=== PATIENT | female | born 1970 | race Two or more races ===

== ENCOUNTER 2016-03-22 23:24 | Inpatient (IN) | payer BC ==
[2016-03-22] MEDS ORDERED: NS 1,000 ML IV ONE (23:42)
[2016-03-22] MEDS ORDERED: PROMETHAZINE 25 MG/ML VIAL IV ONE (23:42)
--- NOTE | 2016-03-22 23:44 | EDPRACDOC ---
- General Information Chief Complaint: Abdominal Pain Stated Complaint: TROUBLE URINATING / POST SURGERY Time Seen by Provider: 03/22/16 23:37 Mode Of Arrival: Car Home Medications: Home Medications Lisinopril 10 mg PO DAILY 12/15/12 Ibuprofen Tablet [Motrin] 800 mg PO Q6-8H PRN #30 tab 12/17/12 Oxycodone Immediate Release [Oxycodone Immediate Release (OxyIR)] 5 mg PO Q6H PRN 03/22/16 Pravastatin [Pravachol] 1 tab PO HS 03/22/16 Promethazine [Phenergan] 25 mg PO Q4H PRN 03/22/16 Allergies/Adverse Reactions: Allergies Allergy/AdvReac Type Severity Reaction Status Date / Time No Known Allergies Allergy Verified 03/22/16 23:36 - History of Present Illness Onset: 1 day HPI: PATIENT HAD CHOLECYSTECTOMY TODAY. SINCE SURGERY SHE STATES SHE HAS BEEN UNABLE TO URINATE. PAIN IN SUPRAPUBIC REGION. EPISODES OF NAUSEA AND VOMITING 7 X. 2 EPISODES OF SYNCOPE SINCE SURGERY. Pain Location: Reports: Suprapubic Pain Context: Reports: Spontaneous Pain Severity: Moderate Pain Quality: Reports: Aching Pain Radiation: Reports: No Radiation Last Menstrual Period: YEARS : No Adult Abdominal History: Reports: Abdominal Surgery Female Associated Signs & Symptoms: Reports: Nausea, Vomiting, Dysuria Oral Intake: Normal Urinary Output: Normal ED Past Medical History - History Reviewed Yes Nurses notes reviewed and agree except as marked Travel Outside of [place] in the Last 3 Months?: No - Patient Medical History Cardiac History: Reports: Hypertension Systemic History: Reports: Anemia (HISTORY). Denies: Cancer Surgical History: Reports: Hysterectomy - Family Medical History Reports: Hypertension (MOM), Diabetes (MOM). Denies: Cancer, Stroke, Cardiac Disorders - Social Medical History Smoking Status: Never smoker ETOH: None Substance Abuse: None Lives With: Family Lives In: Home EDM Review of Systems - Review of Systems ROS Negative Except as Marked: Yes All systems reviewed and were negative except as marked Constitutional: No Symptoms Reported. negative: Fever, Chills, Weakness, Fatigue, Loss of Appetite Eyes: No Symptoms Reported. negative: Redness, Blurred Vision, Double Vision, Discharge, Pain, Light Sensitive, Photophobia Ears: No Symptoms Reported. negative: Pain, Hearing Loss, Drainage, Ear Pulling Throat: No Symptoms Reported. negative: Pain, Swelling Nose: No Symptoms Reported. negative: Congestion, Bleeding, Discharge, Injection, Swelling, Deformity, Ecchymosis, Tender, Abrasion, Laceration Mouth: No Symptoms Reported. negative: Pain, Drooling Respiratory: No Symptoms Reported. negative: Cough, Brassy Cough, Barky Cough, Shortness of Breath, Wheezing, Hemoptysis Cardiovascular: Syncope. negative: Chest Pain, Cyanosis, Edema, Orthopnea, Palpitations, PND, Skin Mottling Gastrointestinal: Nausea, Pain, Vomiting. negative: Constipation, Diarrhea, Formula Intolerance, Melena Genitourinary: No Symptoms Reported. negative: Dysuria, Hematuria, Frequency, Discharge, Bleeding, Testicular Pain, Neurological: No Symptoms Reported. negative: Headache, Dizziness, Seizure, Numbness, Weakness, Speech Difficulty, Gait Difficulty Musculoskeletal: No Symptoms Reported. negative: Neck, Chestwall, Ribs, Back, Shoulder, Arm, Elbow, Forearm, Wrist, Hand, Pelvis, Hip, Femur, Knee, Leg, Ankle , Foot Integumentary: No Symptoms Reported. negative: Itching, Rash, Bruising, Wound Allergic/Immunologic: No Symptoms Reported. negative: Hives, Itching Hematologic: No Symptoms Reported. negative: Lymphadenopathy, Easy Bruising, Easy Bleeding Endocrine: No Symptoms Reported. negative: Weight Gain, Weight Loss Psychiatric: No Symptoms Reported. negative: Anxiety, Depression, Hallucinations, Insomnia, Suicidal - Physical Exam Constitutional: Alert (Awake), Distress (MODERATE) Oriented to: Time, Person, Place Last recorded Vital Signs: Last Vital Signs Temp 98 F 03/22/16 23:29 Pulse 87 03/22/16 23:29 Resp 20 03/22/16 23:29 BP 97/55 L 03/22/16 23:29 Pulse Ox 100 03/22/16 23:29 Oxygen Pulse Oxygen Saturation 100 O2 Device Room Air Oxygen Flow Rate Fraction of Inspired Oxygen ( FIO2) - HEENT Head: Normal ( normocephalic) Eye Exam: Normal (PERRL, EOMI, Sclera white) Oropharynx: Normal (Pharynx:Moist without exudate,Gums-no swelling) Tympanic Membrane: Normal ENT EAC: Normal TMJ: Normal Nose: No Symptoms Reported (septum midline) Neck: Normal (FROM, trachea at midline) - Respiratory/Cardiovascular Respiratory: Normal - CTA (BBS clear to auscultation without adventitious sounds ) Cardiovascular: Normal (RRR without murmur, gallop or rub) - GI Auscultation: Normal (NABS) Palpation: Normal (Soft,No rebound or guarding, non distended) Tenderness: Mild, Suprapubic Chandler's Sign: Negative GI Comment: WOUNDS APPEAR TO BE IN EARLY HEALING. NO ERYTHEMA. NO DISCHARGE - Bladder: Tender - Musculoskeletal Back: Normal (Non-Tender) Extremities: Normal (Normal tone, Pulses 2+ No cyanosis or edema, FROM) - Integumentary Skin: Cool, Dry, Pale Lymphatics: Normal (no adenopathy) - Neurologic Memory Impaired: Normal Motor Function: Normal (Normal tone, Pulses 2+ No cyanosis or edema, FROM) Cranial Nerve: Normal (CN II-X11 intact sensation, strength 5/5) Cerebellar: Normal Mood Description: Normal Perception: Normal - Results 03/23/16 00:10 03/23/16 00:10 WBC 14.7 xk/uL (3.8-10.8) H 03/23/16 00:10 RBC 3.62 xM/uL (4.20-5.40) L 03/23/16 00:10 Hgb 10.0 g/dL (12.0-16.0) L 03/23/16 00:10 Hct 30.3 % (36-47) L 03/23/16 00:10 MCV 84 fL (81-99) 03/23/16 00:10 MCH 27.7 pg (27-32) 03/23/16 00:10 MCHC 33.0 g/dl (33-36) 03/23/16 00:10 RDW 13.8 % (11.5-14.5) 03/23/16 00:10 Plt Count 285 xk/uL (130-400) 03/23/16 00:10 MPV 8.8 fL (7.4-10.4) 03/23/16 00:10 Neut % (Auto) 86.1 % (45-76) H 03/23/16 00:10 Lymph % (Auto) 8.5 % (17-44) L 03/23/16 00:10 Winston % (Auto) 5.2 % (3-10) 03/23/16 00:10 Eos % (Auto) 0.0 % (0-5) 03/23/16 00:10 Baso % (Auto) 0.2 % (0-2) 03/23/16 00:10 Absolute Neuts (auto) 12.64 xk/uL (1.7-8.2) H 03/23/16 00:10 Absolute Lymphs (auto) 1.18 xk/uL (0.65-4.75) 03/23/16 00:10 Sodium 134 mEq/L (137-146) L 03/23/16 00:10 Potassium 4.7 mEq/L (3.5-5.1) 03/23/16 00:10 Chloride 100 mEq/L (98-107) 03/23/16 00:10 Carbon Dioxide 23 mMOL/L (22-33) 03/23/16 00:10 Anion Gap 16 mEq/L (8-16) 03/23/16 00:10 BUN 22 MG/DL (7-17) H 03/23/16 00:10 Creatinine 0.80 MG/DL (0.52-1.04) 03/23/16 00:10 Estimated GFR (MDRD) > 60 mL/min (>=60) 03/23/16 00:10 Glucose 133 mg/dL (70-99) H 03/23/16 00:10 Calculated Osmolality 263 MOs/Kg (270-290) L 03/23/16 00:10 Calcium 8.4 MG/DL (8.4-10.2) 03/23/16 00:10 Corrected Calcium 9.1 MG/DL (8.4-10.2) 03/23/16 00:10 Total Bilirubin 0.5 MG/DL (0.2-1.3) 03/23/16 00:10 AST 29 IU/L (14-36) 03/23/16 00:10 ALT 41 IU/L (9-52) 03/23/16 00:10 Alkaline Phosphatase 46 IU/L (38-126) 03/23/16 00:10 Total Protein 5.9 G/DL (6.3-8.2) L 03/23/16 00:10 Albumin 3.3 G/DL (3.5-5.0) L 03/23/16 00:10 Urine Color Nguyen 03/23/16 00:14 Urine Clarity Sl cldy 03/23/16 00:14 Urine pH 5.0 (5.0-8.0) 03/23/16 00:14 Ur Specific [place] 1.020 (1.003-1.035) 03/23/16 00:14 Urine Protein 1+ (NEG/TRACE) H 03/23/16 00:14 Urine Glucose (UA) Neg (NEGATIVE) 03/23/16 00:14 Urine Ketones Neg (NEGATIVE) 03/23/16 00:14 Urine Occult Blood Neg (NEG/TRACE) 03/23/16 00:14 Urine Nitrite Neg (NEGATIVE) 03/23/16 00:14 Urine Bilirubin Neg (NEGATIVE) 03/23/16 00:14 Urine Urobilinogen <2.0 MG/DL (0-1) 03/23/16 00:14 Ur Leukocyte Esterase Neg (NEGATIVE) 03/23/16 00:14 Urine RBC 0-2 (0-5) 03/23/16 00:14 Urine WBC 2-5 (0-5) 03/23/16 00:14 Ur Epithelial Cells 1+ 03/23/16 00:14 Uric Acid Crystals Occ 03/23/16 00:14 Urine Bacteria Few (NEG/FEW) 03/23/16 00:14 Hyaline Casts Tntc (0-2) H 03/23/16 00:14 Urine Mucus Mod (NEG/OCC) H 03/23/16 00:14 Lab Results 03/23/16 03/23/16 03/23/16 00:14 00:10 00:10 WBC 14.7 H RBC 3.62 L Hgb 10.0 L Hct 30.3 L MCV 84 MCH 27.7 MCHC 33.0 RDW 13.8 Plt Count 285 MPV 8.8 Neut % (Auto) 86.1 H Lymph % (Auto) 8.5 L Winston % (Auto) 5.2 Eos % (Auto) 0.0 Baso % (Auto) 0.2 Absolute Neuts (auto) 12.64 H Absolute Lymphs (auto) 1.18 Sodium 134 L Potassium 4.7 Chloride 100 Carbon Dioxide 23 Anion Gap 16 BUN 22 H Creatinine 0.80 Estimated GFR (MDRD) > 60 Glucose 133 H Calculated Osmolality 263 L Calcium 8.4 Corrected Calcium 9.1 Total Bilirubin 0.5 AST 29 ALT 41 Alkaline Phosphatase 46 Total Protein 5.9 L Albumin 3.3 L Urine Color Nguyen Urine Clarity Sl cldy Urine pH 5.0 Ur Specific [place] 1.020 Urine Protein 1+ H Urine Glucose (UA) Neg Urine Ketones Neg Urine Occult Blood Neg Urine Nitrite Neg Urine Bilirubin Neg Urine Urobilinogen <2.0 Ur Leukocyte Esterase Neg Urine RBC 0-2 Urine WBC 2-5 Ur Epithelial Cells 1+ Uric Acid Crystals Occ Urine Bacteria Few Hyaline Casts Tntc H Urine Mucus Mod H - EKG EKG #1 EKG Time: 00:09 -: Yes EKG interpreted by me Rate: bpm: 85 [place]: Normal Rhythm: NSR Block: None Hypertrophy: None ST: Normal - Additional Information patient had 300cc urine output with catheter - Departure Yes I personally saw and evaluated the patient. Disposition: Admit IP To This Hospital Condition: Fair Final Diagnosis: Dehydration Hypotension Qualifiers: Hypotension type: orthostatic hypotension Qualified Code(s): I95.1 - Orthostatic hypotension Syncope Qualifiers: Syncope type: unspecified Qualified Code(s): R55 - Syncope and collapse Nausea & vomiting Qualifiers: Vomiting type: unspecified Vomiting Intractability: intractable Qualified Code( s): R11.2 - Nausea with vomiting, unspecified Instructions: Acute Abdominal Pain (ED), Acute Nausea and Vomiting (ED) Education/Counseling Given To: Patient Education/Counseling Given Regarding: Diagnosis, Treatment, Prognosis Referrals: None,No Provider [Primary Care Provider] - One Week Prescriptions: No Action Lisinopril 10 mg PO DAILY Ibuprofen Tablet [Motrin] 800 mg PO Q6-8H PRN #30 tab PRN Reason: Pain Pravastatin [Pravachol] 1 tab PO HS Oxycodone Immediate Release [Oxycodone Immediate Release (OxyIR)] 5 mg PO Q6H PRN PRN Reason: Pain Promethazine [Phenergan] 25 mg PO Q4H PRN PRN Reason: Nausea/Vomiting Decision to Admit Time: 00:50 Decision to admit date: 03/23/16 Decision to admit: from ED - Physician Consulted Surgery Time Called: 00:50 Provider Called: Sam Gastelum Time Poll Clerk Returned Call: 00:50
--- NOTE | 2016-03-23 00:07 | DIRPT ---
CLINICAL DATA: Patient with abdominal pain and vomiting. EXAM: PORTABLE CHEST 1 VIEW COMPARISON: None. FINDINGS: Normal cardiac and mediastinal contours. Elevation of the right hemidiaphragm. Minimal heterogeneous opacities right lung base. No pleural effusion or pneumothorax. IMPRESSION: Elevation right hemidiaphragm with right basilar heterogeneous opacities favored represent atelectasis. Electronically Signed By: Martin Claudio M.D. On: 03/23/2016 00:04
[2016-03-23 00:24] LABS: AUTOMATED BASOPHIL 0.2 % (0-2); AUTOMATED LYMPH 8.5 % (17-44); AUTOMATED MONOCYTE 5.2 % (3-10); AUTOMATED NEUTROPHIL 86.1 % (45-76); MPV 8.8 fL (7.4-10.4)
[2016-03-23 00:36] LABS: BLOOD UREA NITROGEN 22 MG/DL (7-17); CALC CORRECTED 9.1 MG/DL (8.4-10.2); CALCIUM 8.4 MG/DL (8.4-10.2); CALCULATED OSMOLALITY 263 MOs/Kg (270-290); CHLORIDE 100 mEq/L (98-107); GLUCOSE 133 mg/dL (70-99); SODIUM LEVEL 134 mEq/L (137-146); TOTAL PROTEIN 5.9 G/DL (6.3-8.2)
[2016-03-23 00:37] LABS: LEUKOCYTES/URINE NEG (NEGATIVE); NITRITE/URINE NEG (NEGATIVE); RBC/URINE 0-2 (0-5); URINE OCCULT BLOOD NEG (NEG/TRACE)
[2016-03-23] MEDS ORDERED: HYDROmorphone 1 MG INJECTION IV ONE (00:47)
[2016-03-23] MEDS ORDERED: Aluminum;Magnesium;Simethicone 30 ML UDC PO PRN (01:07)
[2016-03-23] MEDS ORDERED: ACETAMINOPHEN 650 MG SUPP PR PRN (01:07)
[2016-03-23] MEDS ORDERED: ONDANSETRON HCL 4 MG/2 ML VIAL IV PRN (01:07)
[2016-03-23] MEDS ORDERED: IBUPROFEN 600 MG TAB PO PRN (01:07)
[2016-03-23] MEDS ORDERED: Albuterol/Ipratropium Neb 3 ML NEB NEB PRN (01:07)
[2016-03-23] MEDS ORDERED: MAGNESIUM HYDROXIDE 30 ML BOTTLE PO PRN (01:07)
[2016-03-23] MEDS ORDERED: Docusate Sodium 100 MG CAP PO PRN (01:07)
[2016-03-23] MEDS ORDERED: PROMETHAZINE 25 MG/ML VIAL IV PRN (01:07)
[2016-03-23] MEDS: LR 1,000 ML IV SCH ×3 (02:02→17:58)
[2016-03-23] MEDS: MORPHINE 2 MG/ML INJECTION IV PRN ×4 (02:28→19:31)
[2016-03-23 04:37] VITALS: BMI 32.2
[2016-03-23] MEDS ORDERED: Vaccine Screening Complete SCH (12:00)
--- NOTE | 2016-03-23 13:21 | HISTPHYS ---
- Chief Complaint nausea and vomiting - History of Present Illness This is a 45 year old female that underwent laparoscopic cholecystectomy with intraoperative cholangiogram on 03/22/16. She developed nausea and vomiting at home. She reports emesis x 7 at home. She reports dizziness at home. She reports that she had difficulty urinating at home. She denies nausea or vomiting today. She reports minimal abdominal pain today and much better compared to prior to surgery. - Medical History Cardiac History: Reports: Hypertension Systemic History: Reports: Anemia (HISTORY) Psychological History: Denies: Depression - Surgical History Reports: Cholecystectomy, Hysterectomy - Medictions/Allergies Allergies No Known Allergies Allergy (Verified 03/22/16 23:36) Home Medications Lisinopril 10 mg PO DAILY 12/15/12 Ibuprofen Tablet [Motrin] 800 mg PO Q6-8H PRN #30 tab 12/17/12 Oxycodone Immediate Release [Oxycodone Immediate Release (OxyIR)] 5 mg PO Q6H PRN 03/22/16 Pravastatin [Pravachol] 1 tab PO HS 03/22/16 Promethazine [Phenergan] 25 mg PO Q4H PRN 03/22/16 Etodolac [Etodolac ER] 500 mg PO BID 03/23/16 - Family History Reports: Hypertension (MOM), Diabetes (MOM). Denies: Cancer, Stroke, Cardiac Disorders - Social History Travel Outside of [place] in the Last 3 Months?: No Lives: With Family Smoking Status: Never smoker Social History: Denies: Amphetamine Use, Alcohol Use, Barbiturate Use, Benzodiazipine Use, Cocaine Use, Heroin Use, Marijuana Use, Methadone Use, MDMA (Ecstasy) Use, Substance Use Disorder - Review of Systems Yes All systems reviewed and were negative except as marked (twelve systems reviewed with the patient.) - Physical Exam Vital Signs: Initial Vitals Temperature 98 F 03/22/16 23:29 Pulse Rate 87 03/22/16 23:29 Respiratory Rate 20 03/22/16 23:29 Blood Pressure 97/55 L 03/22/16 23:29 Pulse Oxygen Saturation 100 03/22/16 23:29 Constitutional: No apparent distress Oriented to: Time, Person, Place - HEENT Head: Normal (normocephalic, atraumatic.), Other (No cervical lymphadenopathy. No supraclavicular lymphadenopathy. Neck: No palpable mass, supple , trachea midline.) Eye: Normal (pupils equal, reactive to light, and round; EOMI, Sclera white). negative: Scleral Icterus Oropharynx: Normal (Pharynx: Moist without exudate,Gums-no swelling, No oropharyngeal lesions or erythema, Mucous membranes are dry.) Tympanic Membrane: Normal (no discharge) ENT EAC: Normal (No oropharyngeal lesions or erythema. Mucous membranes are dry. ) TMJ: Normal Nose: No Symptoms Reported (septum midline, Nares patent, without discharge or bleeding.) Respiratory: Normal - CTA (Clear to auscultation bilaterally. No wheezing, rales , rhonchi. Chest wall movements are symmetric. No use of accessory muscles to breathe.) Cardiovascular: Normal (RRR , Normal S1, S2. No murmurs, rubs, or gallops. PMI non-displaced. Carotids: no carotid bruits. No bradycardia or tachycardia. DP pulses 2+ bilaterally.) - GI Auscultation: Normal (normal active sounds) Palpation: Normal (Soft,non distended,nontender. No hepatosplenomegaly.) Tenderness: Non tender (No rebound or guarding) Chandler's Sign: Negative Rectal Exam: Deferred - Musculoskeletal Back: Normal (Non-Tender) Extremities: Normal (Normal tone, DP pulses 2+ bilaterally, No cyanosis or edema bilaterally, FROM bilaterally.) - Integumentary Skin: Normal (Clean, dry, and intact. No rashes. No lesions.) Lymphatics: Normal (No cervical lymphadenopathy. No supraclavicular lymphadenopathy.) - Neurologic Memory Impaired: Normal Motor Function: Normal (Motor 5/5 throughout.Normal tone, Pulses 2+ No cyanosis or edema, FROM) Cranial Nerve: Normal (CN II-XII intact sensation, strength 5/5) Cerebellar: Normal (Babinski: toes downgoing bilaterally. Intact Finger to nose. Sensory grossly intact to light touch. Intact rapid alternating movements bilaterally. No pronator drift.) Mood Description: Normal (Fully oriented. Normal and appropriate affect.) Perception: Normal (Normal and appropriate affect.) - Lab Results 03/23/16 00:10 03/23/16 00:10 - Diagnostic Findings Final Report CLINICAL DATA: Patient with abdominal pain and vomiting. EXAM: PORTABLE CHEST 1 VIEW COMPARISON: None. FINDINGS: Normal cardiac and mediastinal contours. Elevation of the right hemidiaphragm. Minimal heterogeneous opacities right lung base. No pleural effusion or pneumothorax. IMPRESSION: Elevation right hemidiaphragm with right basilar heterogeneous opacities favored represent atelectasis. Electronically Signed By: Martin Claudio M.D. On: 03/23/2016 00:04 - Assessment/Plan (1) Dehydration E86.0 - DEHYDRATION Acute Present on Admission: Yes Comment: The patient's postoperative nausea and vomiting appear to have contributed to dehydration and dizziness. According to the patient the nausea and vomiting appear to have resolved. We will plan for intravenous fluids and careful monitoring. We will encourage the patient in ambulation and plan for removal of the reyes catheter prior to discharge and ensure that the patient is able to urinate without difficulty. I discussed the treatment plan at length with the patient via translator interpreter. All questions were answered. She voiced understanding and agreement with the above plan. Case Care Discussed with: Patient (I discussed with the patient via translator interpreter. )
[2016-03-23] MEDS: SIMETHICONE 80 MG TAB PO PRN ×2 (15:38→20:36)
[2016-03-23] MEDS: PRAVASTATIN 20 MG TAB PO SCH (20:36)
[2016-03-24] MEDS: SIMETHICONE 80 MG TAB PO PRN (00:31)
[2016-03-24] MEDS: MORPHINE 2 MG/ML INJECTION IV PRN ×2 (01:20→14:12)
[2016-03-24] MEDS: LR 1,000 ML IV SCH ×3 (04:58→20:33)
[2016-03-24 07:29] LABS: BLOOD UREA NITROGEN 9 MG/DL (7-17); CALCIUM 8.1 MG/DL (8.4-10.2); CALCULATED OSMOLALITY 268 MOs/Kg (270-290); CHLORIDE 105 mEq/L (98-107); GLUCOSE 92 mg/dL (70-99); SODIUM LEVEL 140 mEq/L (137-146)
--- NOTE | 2016-03-24 14:53 | PCM.SURGRO ---
- Subjective Chief Complaint: left ankle swelling Post Op Day: 2 (laparoscopic cholecystectomy) Patient: Reports: Feels better (The patient denies abdominal pain currently.), Tolerating Regular Diet, Voiding without difficulty (The patient reports that she was able to urinate multiple times today. I discussed with the patient's nurse, Rimma, who confirmed this.), Flatus, Bowel Movement, Afebrile, Ambulating in [place] (Multiple times.), Other (The patient states that she fell on her left ankle at home and now has mild swelling of the left ankle. She denies pain with ambulation.). Denies: Nausea, Vomiting, Shortness of breath - Objective / Physical Exam Vital Signs: Temperature: 98.5 F (03/24/16 13:37) HR: 90 (03/24/16 13:37)RR: 18 (03/24/16 13: 37) BP: 121/58 (03/24/16 13:37)Pulse Ox: 99 (03/24/16 13:37) General: Alert, Oriented x3, Cooperative, No acute distress HEENT: Normal, Anicteric Sclera, Mucous membr. moist/pink Respiratory: Normal - CTA Cardiovascular: Regular rate and rhythm Gastrointestinal: Soft, Bowel Sounds, Other (dressings intact.). negative: Distended, Tender, Guarding, Firm, Rigid, Hernia Extremities: Swelling (mild swelling of the left ankle but not tender. Full range of motion of the left ankle.). negative: Tenderness, Edema Psych/Mental Status: Appropriate, Normal Affect, Cooperative. negative: Agitated, Anxious Neurological: Normal speech Skin: No rashes Surgical wound: Other (dressings intact) - Assessment and Plan (1) Dehydration Acute E86.0 - DEHYDRATION Present on Admission: Yes Comment/Plan: The patient appears to be improving. She had an episode of urinary retention earlier today but this is slowly improving. We will obtain an x ray of the left foot to ensure that there is no evidence of fracture. We will continue intravenous hydration and ambulation and monitor closely for any evidence of dizziness or ambulatory dysfunction. It is unsafe to discharge the patient at this time secondary to concern regarding the patient's stability while ambulating. I encouraged the patient in the use of the incentive spirometer. I discussed the treatment plan and tentative home discharge plans with the patient and the patient's , via language interpreter. All questions were answered. They voiced understanding and agreement with the above plan.
--- NOTE | 2016-03-24 15:13 | DIRPT ---
CLINICAL DATA: LEFT ankle swelling EXAM: LEFT ANKLE COMPLETE - 3+ VIEW COMPARISON: None. FINDINGS: Ankle mortise intact. The talar dome is normal. No malleolar fracture. The calcaneus is normal. IMPRESSION: No fracture or dislocation. Electronically Signed By: Evert Higginbotham M.D. On: 03/24/2016 15:10
[2016-03-24] MEDS: PRAVASTATIN 20 MG TAB PO SCH (20:29)
[2016-03-24] MEDS: ACETAMINOPHEN 325 MG/TAB TABLET PO PRN (20:29)
[2016-03-25] MEDS: LR 1,000 ML IV SCH ×2 (01:39→06:07)
[2016-03-25] MEDS: ACETAMINOPHEN 325 MG/TAB TABLET PO PRN (02:52)
[2016-03-25 06:18] VITALS: TEMP 98.2
[2016-03-25] MEDS: SIMETHICONE 80 MG TAB PO PRN (07:59)
--- NOTE | 2016-03-25 09:31 | PCM.DCS92 ---
- Final/Secondary Discharge Diagnosis (1) Dehydration Acute E86.0 - DEHYDRATION Present on Admission: Yes Discharge Disposition: Home Discharge Condition: Improved Cognitive Discharge Status: Unimpaired Fuctional Discharge Status: Independent Physician Follow up/Referrals: Pablo Vasquez MD [Staff Physician] - Three Weeks Sam Gastelum DO [Staff Physician] - Two Weeks Home Medications/ New Prescriptions: New Ibuprofen 400 mg PO Q6H PRN #20 tablet PRN Reason: Abdominal Pain No Action Lisinopril 10 mg PO DAILY Ibuprofen Tablet [Motrin] 800 mg PO Q6-8H PRN #30 tab PRN Reason: Pain Pravastatin [Pravachol] 1 tab PO HS Oxycodone Immediate Release [Oxycodone Immediate Release (OxyIR)] 5 mg PO Q6H PRN PRN Reason: Pain Promethazine [Phenergan] 25 mg PO Q4H PRN PRN Reason: Nausea/Vomiting Etodolac [Etodolac ER] 500 mg PO BID Additional Instructions: Walk three times a day at least. Use incentive spirometer every hour while awake. Diet at Discharge: As Tolerated, Regular Activity: No Heavy Lifting, No Driving Call Office For: Worsening Symptoms, Wound is Draining Pus, Fever over 101 F, Wound is Painful, Wound is Red, Pain Uncontrolled By Meds, Other (See Details) ( chest pain or difficulty breathing.) Discontinue use of:: Alcohol, All Illegal Substances, All Types of Tobacco - DC Summary Notes Hospital Course Note:: Discharge summary on patient named BETO BASILIO admitted to [facility] on 03/23/16 by Sam Gastelum DO. The patient was admitted with a diagnosis of dehydration and urinary retention. She was started on intravenous fluids and closely monitored. The patient's diet and activity were advanced, which she was able to tolerate. She stated that she felt better and wanted to go home on 03/25/16. Full and careful home instructions were discussed with the patient and the patient's , via roof designer Marcy. All questions were answered. They voiced understanding. Date of discharge is . Discharge condition: Stable Final discharge diagnosis: dehydration and urinary retention. Wound Care Surgical Site: Yes May Shower Starting:: 03/26/16 Remove Clear Dressing In How Many Days?: 7 Remove Gauze Dressing in How Many Days?: 7 Ability To Perform Care (if applicable): Yes - Physical Exam Vital Signs: Initial Vitals Temperature 98 F 03/22/16 23:29 Pulse Rate 87 03/22/16 23:29 Respiratory Rate 20 03/22/16 23:29 Blood Pressure 97/55 L 03/22/16 23:29 Pulse Oxygen Saturation 100 03/22/16 23:29 Constitutional: Alert (Awake, Fully oriented. Normal and appropriate affect.Well appearing. Well nourished.), No apparent distress Oriented to: Time, Person, Place - HEENT Head: Normal (normocephalic, atraumatic.), Other (No cervical lymphadenopathy. No supraclavicular lymphadenopathy. Neck: No palpable mass, supple , trachea midline.) Eye: Normal (pupils equal, reactive to light, and round; EOMI, Sclera white) Oropharynx: Normal (Pharynx: Moist without exudate,Gums-no swelling, No oropharyngeal lesions or erythema, Mucous membranes are dry.) TMJ: Normal Nose: No Symptoms Reported (septum midline, Nares patent, without discharge or bleeding.) Respiratory: Normal - CTA (Clear to auscultation bilaterally. No wheezing, rales , rhonchi. Chest wall movements are symmetric. No use of accessory muscles to breathe.) Cardiovascular: Normal (RRR , Normal S1, S2. No murmurs, rubs, or gallops. PMI non-displaced. Carotids: no carotid bruits. No bradycardia or tachycardia. DP pulses 2+ bilaterally.) - GI Auscultation: Normal (normal active sounds) Palpation: Normal (Soft,non distended,nontender. No hepatosplenomegaly.) Tenderness: Non tender (No rebound or guarding) Chandler's Sign: Negative Rectal Exam: Deferred - Exam Deferred: Yes - Musculoskeletal Back: Normal (Non-Tender) Extremities: Normal (Normal tone, DP pulses 2+ bilaterally, No cyanosis or edema bilaterally, FROM bilaterally.) - Integumentary Skin: Normal (Clean, dry, and intact. No rashes. No lesions.) Lymphatics: Normal (No cervical lymphadenopathy. No supraclavicular lymphadenopathy.) - Neurologic Memory Impaired: Normal Motor Function: Normal (Motor 5/5 throughout.Normal tone, Pulses 2+ No cyanosis or edema, FROM) Cranial Nerve: Normal (CN II-XII intact sensation, strength 5/5) Cerebellar: Normal (Babinski: toes downgoing bilaterally. Intact Finger to nose. Sensory grossly intact to light touch. Intact rapid alternating movements bilaterally. No pronator drift.) Mood Description: Normal (Fully oriented. Normal and appropriate affect.) Perception: Normal (Normal and appropriate affect.)
[2016-03-25 11:37] VITALS: BP 121/73; PULSE 76
== END 2016-03-25 11:42 | disposition home or self-care (01) | DRG 641 ==
LOC: ED 23:24 → MPS3 03-23 01:06
PROVIDERS: ADMIT Surgery; ATTEND Surgery
DX: E86.0 Dehydration (principal); I10 Essential (primary) hypertension; R33.9 Retention of urine, unspecified; Z79.899 Other long term (current) drug therapy; R11.2 Nausea with vomiting, unspecified; Z90.49 Acquired absence of other specified parts of digestive tract
CPT/HCPCS: 36415; 51701; 71010; 80048; 80053; 81001; 85025; 93005; 96361; 96374; 96375; 99284; G0237; J1170; J2270; J2550; J3490

== ENCOUNTER → 2016-03-22 | Day surgery (SDC) | payer BC ==
[2012-12-15 08:32] VITALS: BMI 29.6
[~2016-03-22] MED LIST: BUPIVACAINE 0.5% 30 ML VIAL ONE; CEFAZOLIN 1 GM VIAL ONE; DEXAMETHASONE 4 MG/ML VIAL IV ONE; FENTANYL 100 MCG/2 ML VIAL IV ONE; FENTANYL 100 MCG/2 ML VIAL IV PRN; FENTANYL 100 MCG/2 ML VIAL ONE; GLYCOPYRROLATE 1 MG VIAL IM ONE; HYDROmorphone 1 MG INJECTION IV PRN; HYDROmorphone 1 MG INJECTION ONE; ISOVUE-300 (61%) 50 ML ONE; KETOROLAC TROMETH 30 MG/ML VIAL IM ONE; LABETALOL 20 MG/4 ML SYRINGE IV PRN; LIDOCAINE 4% 5 ML AMPULE NEB ONE; MEPERIDINE 25 MG/ML TUBEX IV PRN; METOCLOPRAMIDE 10 MG/2 ML VIAL IV ONE; NEOSTIGMINE 1 MG/1 ML (1:1000) INJ 10 ML MDV IM ONE; NIMBEX 10 MG/5 ML VIAL IV ONE; ONDANSETRON HCL 4 MG ODT TAB PO PRN; ONDANSETRON HCL 4 MG/2 ML VIAL IV ONE; ONDANSETRON HCL 4 MG/2 ML VIAL IV PRN; OXYCODONE HCL 5 MG TABLET ONE; PROMETHAZINE 25 MG/ML VIAL IV PRN; PROPOFOL 200 MG/20 ML VIAL IV ONE; hydrALAZINE 20 MG/ML VIAL IV PRN
--- NOTE | 2016-03-22 06:55 | SC.ANESPOS ---
Post-Anesthesia Note LOC: [place] [facility] Calling Post-Anesthesia Assessment: Awake, Returned to Baseline, Hemodynamically Stable , Pain Control Adequate Phase I & II Recovery Complete: Yes Apparent Anesthesia Complication: No : N - Vital Signs Blood Pressure: 135/80 Pulse: 67 Resp Rate: 18 O2 Sat: 99 Temp: 98.3 F
--- NOTE | 2016-03-22 06:58 | HIM.ANES ---
Anesthesia Evaluation & Plan Diagnoses: RIGHT UPPER QUADRANT PAIN (03/22/16) Consented Procedure: LAPAROSCOPIC CHOLECYSTECTOMY WITH INTRAOPERATIVE CHOLANGIOGRAM,POSSIBLE OPEN INCISION - Focused Review of Systems Now: No Cardiac History: Yes: Hx Hypertension, Hx Cardiac Disorders, Hx Abnormal Cholesterol/Hyperlipidemia HEENT: Yes: Hx Vision Problem (WEARS READERS) No: Other HEENT Problems Gastrointestinal: No: Hx Gastroesophageal Reflux Disease, Hx Gastrointestinal Disorders Neurological/Musculoskeletal: No: Hx Neurological Disorders Psychological: No Hx Mental/Emotional Disorders Blood/Autoimmune: Yes: Hx Anemia (HISTORY) No: Hx AIDS, Hx Hepatitis (type) Smoking Status: Never smoker Other Surgical History: BLADDER NICKED DURING [id number] -14 YEARS AGO - Focused Physical Exam NPO since: 03/21/16 Mallampati: Class III Thyromental Distance: Greater than 3 Neck: Full Range of Motion Dental: Normal - no significant findings Cardiovascular/Chest: Normal Respiratory: Lungs clear Any problems with anesthesia, including nausea and vomiting?: No Any relatives with a history of Malignant Hyperthermia?: No Beta Darvin given (if appropriate): N/A Other: Problem List Problem Status Onset Anemia Active Menorrhagia Active PT/PTT/INR/ Urine Test Neg (NEGATIVE) 03/22/16 06:10 Allergies Allergy/AdvReac Type Severity Reaction Status Date / Time No Known Allergies Allergy Verified 03/22/16 06:47 Home Medications Medication Instructions Recorded Last Taken Type Lisinopril 10 mg PO DAILY 12/15/12 03/22/16 05:30 History Ibuprofen Tablet [Motrin] 800 mg PO Q6-8H PRN #30 tab 12/17/12 03/20/16 08:00 Rx Pravastatin [Pravachol] 1 tab PO HS 03/22/16 03/20/16 22:00 History Height and Weight Patient's height 5 ft 2 in Patient's weight 168 lb BMI 29.6 Vital Signs Temperature 98.3 F 03/22/16 06:55 Pulse Rate 67 03/22/16 06:55 Respiratory Rate 18 03/22/16 06:55 Blood Pressure 135/80 03/22/16 06:55 Pulse Oxygen Saturation 99 03/22/16 06:55 - Anesthetic Plan Anesthesia Type: General ASA Class: 2 -: I have examined this patient and reviewed the medical record. The patient has been assessed prior to anesthesia. Risks and benefits of anesthesia and anesthetic technique options have been discussed and all questions answered. The patient accepts the risk and desires me to proceed with the planned anesthetic.
--- NOTE | 2016-03-22 08:34 | HIMOPRPT ---
DATE OF PROCEDURE: 03/22/16 PREOPERATIVE DIAGNOSIS: Chronic cholecystitis with cholelithiasis. POSTOPERATIVE DIAGNOSIS: Chronic cholecystitis with cholelithiasis. PROCEDURE: Laparoscopic cholecystectomy with intraoperative cholangiogram SURGEON: Sam Gastelum DO. ANESTHESIA: General endotracheal. ANESTHESIOLOGIST: Dr. Sridhar Frankel SPECIMEN: Gallbladder and contents. SPONGE COUNT: Correct. PACKINGS AND DRAINS: None. PATIENT CONDITION: Stable. ESTIMATED BLOOD LOSS: 5mL INDICATIONS: This is a 45-year-old female with right upper quadrant and epigastric abdominal pain. Hida scan demonstrated biliary dyskinesia. It was recommend to this patient, laparoscopic cholecystectomy with intraoperative cholangiogram, possible open incision. The risks associated with operation were discussed with the patient and the patient's family in detail via nutritional services host Kris Francisco.. These risks include, but not limited to bleeding, infection, port site herniation, injury to intra-abdominal blood vessels, injury to small and large intestine, deep vein thrombosis, resultant pulmonary embolism, perioperative cardiac and respiratory morbidity and mortality, injury to common bile duct resulting in need for reoperation, injury to intrahepatic bile duct resulting in need for percutaneous drainage, possible endoscopic retrograde cholangiopancreatography. All questions were answered and informed consent was obtained. FINDINGS: Gallbladder was slightly distended. Moderate omental adhesions of the gallbladder. On intraoperative cholangiogram, no evidence of retained stone or obstruction. OPERATIVE AND TECHNIQUE: With consent, the patient was taken to the operative suite at [facility] and placed in supine position. General anesthesia was induced. Having successful completion of this, the anterior abdomen was sterilely prepped and draped in usual fashion. All members of surgical team were in agreement of correct patient and correct procedure. Curvilinear incision was made inferior to the umbilicus, carried down to the fascial layers entering the peritoneal cavity under direct visualization. It was insufflated to 15 mmHg and kept at or below this pressure at all times during the course of surgery. A total of 3 accessory ports were placed in the right upper quadrant each 5 mm in size, each placed under laparoscopic visualization. Gallbladder was grasped and elevated. Omental adhesions were removed utilizing gentle blunt dissection staying very close to the gallbladder. Cystic duct and cystic artery were circumferentially isolated. Gallbladder cystic duct junction was clearly visualized. Intraoperative cholangiogram was performed with Stefan cholangiocatheter, findings as described above. Once again, the cystic duct circumferentially isolated. Three metallic clips were placed across then transected, leaving 2 on the stump and 1 on the specimen. Cystic artery was circumferentially isolated. Three metallic placed across were then transected, leaving 2 on the stump and 1 on the specimen. Small bridging vein to the gallbladder was identified, this was doubly clamped. Hemostasis was excellent. Gallbladder was removed from liver bed utilizing electrocautery, placed in Endobag, removed the body and passed off as specimen. Right upper quadrant was vigorously irrigated and aspirated dry. Clips were visualized in place. No evidence of arterial or venous bleeding. No evidence of bile duct leakage. Accessory port sites were hemostatic on removal. CO2 gas was allowed to escape in the peritoneal cavity. Fascia was closed with [id number] 0 Vicryl suture. Skin was closed with 4-0 Monocryl subcuticular stitch. After infiltration of anesthetic, Dermabond was applied. Sterile occlusive dressing was applied over this. Anesthesia was reversed. Mrs. Vignesh Gr was taken to recovery, having tolerated the procedure well.
--- NOTE | 2016-03-22 08:36 | HIMOPRPT ---
DATE OF PROCEDURE: 03/22/16 Preoperative diagnosis: Biliary dyskinesia Postoperative diagnosis: Biliary dyskinesia, final pathology pending Procedure: Intraoperative cholangiography under fluoroscopic guidance Surgeon: Sam Gastelum DO Anesthesia: General ANESTHESIOLOGIST: Dr. Sridhar Frankel Blood loss: None Packings and drains: None Complications: None Operative findings and technique: During the course of laparoscopic cholecystectomy by Dr. Gastelum, intraoperative cholangiography was performed under fluoroscopic guidance. Fluoroscopic images reveal a cholangiocatheter on the infundibulum of the gallbladder. Contrast dye is noted to fill the infundibulum. Contrast dye is noted to proceed down a spiraling cystic duct into a normal caliber common bile duct. Contrast dye flows antegrade down the common bile duct and into the duodenum. Retrograde filling of the hepatic radicles is noted as well. There is no evidence of common bile duct obstruction or lesion. Impression: Normal intraoperative cholangiography without any evidence of retained common bile duct stone, stricture, or other lesion.
[2016-03-22] MEDS: FENTANYL 100 MCG/2 ML VIAL IV PRN ×2 (08:40→08:50)
--- NOTE | 2016-03-22 08:42 | DIRPT ---
CLINICAL DATA: Biliary dyskinesia, right upper abdominal pain EXAM: INTRAOPERATIVE CHOLANGIOGRAM TECHNIQUE: Cholangiographic images from the C-arm fluoroscopic device were submitted for interpretation post-operatively. Please see the procedural report for the amount of contrast and the fluoroscopy time utilized. COMPARISON: scintigraphy 02/27/2016 FINDINGS: No persistent filling defects in the common duct. Intrahepatic ducts are incompletely visualized, appearing decompressed centrally. Contrast passes into the duodenum. : Negative for retained common duct stone. Electronically Signed By: Mejia Britton M.D. On: 03/22/2016 08:39
[2016-03-22 15:12] VITALS: BP 135/80; PULSE 67; TEMP 98.3
== END ==
LOC: SDC 05:55
PROVIDERS: ATTEND Surgery
PROC: 0FT44ZZ Resection of Gallbladder, Percutaneous Endoscopic Approach (ICD-10-PCS; principal; 2016-03-22 07:15)
DX: K80.10 Calculus of gallbladder with chronic cholecystitis without obstruction (principal); I10 Essential (primary) hypertension; E78.5 Hyperlipidemia, unspecified; Z79.899 Other long term (current) drug therapy
CPT/HCPCS: 47563; 74300; 81025; J0690; J1100; J1170; J1885; J2405; J2710; J2765; J3010; J3490